=== PATIENT | male | born 1955 | race Caucasian/White ===

== ENCOUNTER 2022-11-26 17:52 | Inpatient (IN) | payer MEDICARE ==
[2022-11-26] MEDS ORDERED: Acetaminophen 325 MG TAB PO PRN (21:20)
[2022-11-26] MEDS ORDERED: Zolpidem Tartrate 5 MG TAB PO PRN (21:20)
[2022-11-26] MEDS ORDERED: Guaifenesin DM 100-10/5 ML UDCUP PO PRN (21:20)
[2022-11-26] MEDS ORDERED: guaiFENesin/DM ER PO PRN (21:24)
[2022-11-26] MEDS ORDERED: Vancomycin HCl 750 MG VIAL IVPB SCH (22:00)
[2022-11-26] MEDS ORDERED: Meropenem 1 GM VIAL IVPB SCH (22:00)
[2022-11-26] MEDS ORDERED: Vancomycin HCl 750 MG in Sodium Chloride 0.9% 250 ML 250 ML IVPB SCH (22:00)
[2022-11-27] MEDS: Meropenem 1 GM in Sodium Chloride 0.9% 100 ML IVPB SCH ×8 (00:17→22:38)
[2022-11-27] MEDS ORDERED: Meropenem 1 GM in Sodium Chloride 0.9% 100 ML IVPB SCH (02:00)
[2022-11-27] MEDS: Ondansetron ODT 4 MG TAB PO PRN (06:44)
[2022-11-27] MEDS: Famotidine 20 MG TAB PO SCH ×2 (08:36→20:48)
[2022-11-27] MEDS: Ferrous Sulfate 325 MG TAB PO SCH (08:36)
[2022-11-27] MEDS: metFORMIN XR 500 MG TAB PO SCH ×2 (08:36→20:51)
[2022-11-27] MEDS: Multivitamin W/ Minerals 1 TAB PO SCH (08:37)
[2022-11-27] MEDS: busPIRone HCl 5 MG TAB PO SCH ×2 (08:37→20:49)
[2022-11-27] MEDS: DULoxetine 30 MG CAP PO SCH (08:37)
[2022-11-27] MEDS: Escitalopram Oxalate 10 mg Tablet PO SCH (08:37)
[2022-11-27 09:17] LABS: Vancomycin, Trough 23.1 ug/mL
[2022-11-27] MEDS ORDERED: Morphine 2 MG/ML VIAL SLOW IVP SCH (09:45)
[2022-11-27] MEDS ORDERED: hydrALAZINE 25 MG TAB PO SCH (12:45)
[2022-11-27] MEDS: Morphine 4 MG/ML VIAL SLOW IVP SCH (13:34)
[2022-11-27] MEDS: traZODone HCl 50 MG TAB PO SCH (20:46)
[2022-11-27] MEDS: Simvastatin 40 MG TAB PO SCH (20:48)
[2022-11-27] MEDS: Losartan Potassium 50 MG TAB PO SCH (20:51)
[2022-11-27] MEDS: Aspirin 325 mg Enteric Coated Tablet PO SCH (20:52)
[2022-11-27] MEDS: Vancomycin HCl 1 GM in Sodium Chloride 0.9% 250 ML 250 ML IVPB SCH (22:42)
[2022-11-27] MEDS: Ipratropium/Albuterol 3 ML NEB NEB PRN (22:54)
[2022-11-28] MEDS: Meropenem 1 GM in Sodium Chloride 0.9% 100 ML IVPB SCH ×6 (05:04→22:49)
[2022-11-28 05:15] LABS: Eosinophils 2 % (0-10); Hemoglobin 8.3 g/dL (14.0-18.0); Lymphocytes 13 % (21-51); MDiff Complete? YES; Mean Corpuscular HGB CONC 32.4 g/dL (32.0-36.0); Mean Corpuscular Hemoglobin 28.1 pg (27.0-31.0); Mean Corpuscular Volume 86.9 fl (78.0-98.0); Mean Platelet Volume 6.2 fL (7.4-10.4); Monocytes 10 % (0-10); Neutrophil 75 % (42-75); Platelet Count 212 10x3/uL (130-400); RBC Distribution Width 15.9 % (11.5-14.5); Red Blood Cell (RBC) Count 2.96 mill/uL (4.70-6.10); White Blood Cell (WBC) Count 5.2 10x3/uL (4.8-10.8)
[2022-11-28 05:31] LABS: ALT (SGPT) 13 U/L (8-55); AST (SGOT) 15 U/L (5-34); Albumin 2.9 g/dL (3.4-4.8); Alkaline Phosphatase 55 U/L (40-110); Anion Gap 12 mmol/L (10-20); BUN (Urea Nitrogen) 15 mg/dL (8.4-25.7); Bilirubin, Total 0.2 mg/dL (0.2-1.2); CRP (Inflammatory) 7.23 mg/dL (= or < 0.5); Calc. Creatinine Clearance 77 mL/min (70-130); Calcium 9.7 mg/dL (7.8-10.44); Carbon Dioxide 27 mmol/L (23-31); Chloride 103 mmol/L (98-107); Estimated GFR 69; Globulin 3.7 g/dL (2.4-3.5); Glucose 131 mg/dL (80-115); Potassium 3.7 mmol/L (3.5-5.1); Protein, Total 6.6 g/dL (5.8-8.1); Sodium 138 mmol/L (136-145)
[2022-11-28] MEDS: Ferrous Sulfate 325 MG TAB PO SCH (08:02)
[2022-11-28] MEDS: hydrALAZINE 25 MG TAB PO SCH ×2 (08:02→12:08)
[2022-11-28] MEDS: Multivitamin W/ Minerals 1 TAB PO SCH (08:02)
[2022-11-28] MEDS: metFORMIN XR 500 MG TAB PO SCH ×2 (08:02→20:59)
[2022-11-28] MEDS: Escitalopram Oxalate 10 mg Tablet PO SCH (08:02)
[2022-11-28] MEDS: DULoxetine 30 MG CAP PO SCH (08:02)
[2022-11-28] MEDS: busPIRone HCl 5 MG TAB PO SCH ×2 (08:02→20:57)
[2022-11-28] MEDS: Famotidine 20 MG TAB PO SCH ×2 (08:02→20:58)
[2022-11-28] MEDS: Ipratropium/Albuterol 3 ML NEB NEB PRN (19:40)
[2022-11-28] MEDS: traZODone HCl 50 MG TAB PO SCH (20:58)
[2022-11-28] MEDS: Aspirin 325 mg Enteric Coated Tablet PO SCH (20:59)
[2022-11-28] MEDS: Simvastatin 40 MG TAB PO SCH (20:59)
[2022-11-28] MEDS: Losartan Potassium 50 MG TAB PO SCH (20:59)
[2022-11-28] MEDS: Vancomycin HCl 1 GM in Sodium Chloride 0.9% 250 ML 250 ML IVPB SCH (22:03)
[2022-11-29] MEDS: Meropenem 1 GM in Sodium Chloride 0.9% 100 ML IVPB SCH ×6 (05:01→23:02)
[2022-11-29] MEDS: hydrALAZINE 25 MG TAB PO SCH ×2 (08:47→12:15)
[2022-11-29] MEDS: Multivitamin W/ Minerals 1 TAB PO SCH (08:47)
[2022-11-29] MEDS: metFORMIN XR 500 MG TAB PO SCH ×2 (08:47→21:05)
[2022-11-29] MEDS: Escitalopram Oxalate 10 mg Tablet PO SCH (08:47)
[2022-11-29] MEDS: busPIRone HCl 5 MG TAB PO SCH ×2 (08:48→21:03)
[2022-11-29] MEDS: DULoxetine 30 MG CAP PO SCH (08:48)
[2022-11-29] MEDS: Famotidine 20 MG TAB PO SCH ×2 (08:48→21:05)
[2022-11-29] MEDS: Ferrous Sulfate 325 MG TAB PO SCH (08:48)
[2022-11-29] MEDS: Morphine 4 MG/ML VIAL SLOW IVP SCH (09:54)
[2022-11-29] MEDS ORDERED: Pseudoephedrine HCl 30 MG TAB PO PRN (15:16)
[2022-11-29] MEDS: Ondansetron ODT 4 MG TAB PO PRN ×2 (16:41→21:26)
[2022-11-29] MEDS: guaiFENesin/Codeine Phosphate 100 mg/10 mg 5 ml UD Cup PO PRN (19:27)
[2022-11-29] MEDS: Losartan Potassium 50 MG TAB PO SCH (21:03)
[2022-11-29] MEDS: Aspirin 325 mg Enteric Coated Tablet PO SCH (21:04)
[2022-11-29] MEDS: Simvastatin 40 MG TAB PO SCH (21:05)
[2022-11-29] MEDS: traZODone HCl 50 MG TAB PO SCH (21:06)
[2022-11-29 21:35] LABS: Vancomycin, Trough 13.2 ug/mL
[2022-11-29] MEDS: Vancomycin HCl 1 GM in Sodium Chloride 0.9% 250 ML 250 ML IVPB SCH (22:09)
[2022-11-30] MEDS: Meropenem 1 GM in Sodium Chloride 0.9% 100 ML IVPB SCH ×6 (05:05→23:15)
[2022-11-30] MEDS: hydrALAZINE 25 MG TAB PO SCH ×2 (08:50→11:41)
[2022-11-30] MEDS: Famotidine 20 MG TAB PO SCH ×2 (08:50→21:09)
[2022-11-30] MEDS: busPIRone HCl 5 MG TAB PO SCH ×2 (08:51→21:07)
[2022-11-30] MEDS: Ferrous Sulfate 325 MG TAB PO SCH (08:51)
[2022-11-30] MEDS: DULoxetine 30 MG CAP PO SCH (08:51)
[2022-11-30] MEDS: Multivitamin W/ Minerals 1 TAB PO SCH (08:51)
[2022-11-30] MEDS: Escitalopram Oxalate 10 mg Tablet PO SCH (08:51)
[2022-11-30] MEDS: metFORMIN XR 500 MG TAB PO SCH ×2 (08:52→21:09)
[2022-11-30] MEDS: guaiFENesin/Codeine Phosphate 100 mg/10 mg 5 ml UD Cup PO PRN (21:06)
[2022-11-30] MEDS: Aspirin 325 mg Enteric Coated Tablet PO SCH (21:08)
[2022-11-30] MEDS: Losartan Potassium 50 MG TAB PO SCH (21:08)
[2022-11-30] MEDS: Simvastatin 40 MG TAB PO SCH (21:08)
[2022-11-30] MEDS: traZODone HCl 50 MG TAB PO SCH (21:09)
[2022-11-30] MEDS: Vancomycin HCl 1 GM in Sodium Chloride 0.9% 250 ML 250 ML IVPB SCH (21:11)
[2022-12-01] MEDS: Meropenem 1 GM in Sodium Chloride 0.9% 100 ML IVPB SCH ×6 (05:42→22:41)
[2022-12-01] MEDS: Multivitamin W/ Minerals 1 TAB PO SCH (09:02)
[2022-12-01] MEDS: hydrALAZINE 25 MG TAB PO SCH ×2 (09:03→12:27)
[2022-12-01] MEDS: busPIRone HCl 5 MG TAB PO SCH ×2 (09:03→20:08)
[2022-12-01] MEDS: Famotidine 20 MG TAB PO SCH ×2 (09:03→20:09)
[2022-12-01] MEDS: metFORMIN XR 500 MG TAB PO SCH ×2 (09:03→20:10)
[2022-12-01] MEDS: Escitalopram Oxalate 10 mg Tablet PO SCH (09:03)
[2022-12-01] MEDS: DULoxetine 30 MG CAP PO SCH (09:03)
[2022-12-01] MEDS: Ferrous Sulfate 325 MG TAB PO SCH (09:03)
[2022-12-01] MEDS: Morphine 4 MG/ML VIAL SLOW IVP SCH (12:59)
[2022-12-01] MEDS: traZODone HCl 50 MG TAB PO SCH (20:09)
[2022-12-01] MEDS: Aspirin 325 mg Enteric Coated Tablet PO SCH (20:10)
[2022-12-01] MEDS: guaiFENesin/Codeine Phosphate 100 mg/10 mg 5 ml UD Cup PO PRN (20:10)
[2022-12-01] MEDS: Simvastatin 40 MG TAB PO SCH (20:11)
[2022-12-01] MEDS: Losartan Potassium 50 MG TAB PO SCH (20:11)
[2022-12-01 21:35] LABS: Vancomycin, Trough 12.3 ug/mL
[2022-12-01] MEDS: Vancomycin HCl 1 GM in Sodium Chloride 0.9% 250 ML 250 ML IVPB SCH (22:40)
[2022-12-02] MEDS: Meropenem 1 GM in Sodium Chloride 0.9% 100 ML IVPB SCH ×6 (05:52→23:32)
[2022-12-02] MEDS: Famotidine 20 MG TAB PO SCH ×2 (08:09→21:05)
[2022-12-02] MEDS: Multivitamin W/ Minerals 1 TAB PO SCH (08:09)
[2022-12-02] MEDS: Ferrous Sulfate 325 MG TAB PO SCH (08:09)
[2022-12-02] MEDS: busPIRone HCl 5 MG TAB PO SCH ×2 (08:10→21:05)
[2022-12-02] MEDS: DULoxetine 30 MG CAP PO SCH (08:10)
[2022-12-02] MEDS: Escitalopram Oxalate 10 mg Tablet PO SCH (08:10)
[2022-12-02] MEDS: hydrALAZINE 25 MG TAB PO SCH ×2 (08:10→13:23)
[2022-12-02] MEDS: metFORMIN XR 500 MG TAB PO SCH ×2 (08:13→21:09)
[2022-12-02] MEDS: Ondansetron ODT 4 MG TAB PO PRN (15:08)
[2022-12-02] MEDS: Vancomycin HCl 1 GM in Sodium Chloride 0.9% 250 ML 250 ML IVPB SCH (21:05)
[2022-12-02] MEDS: traZODone HCl 50 MG TAB PO SCH (21:05)
[2022-12-02] MEDS: Simvastatin 40 MG TAB PO SCH (21:05)
[2022-12-02] MEDS: Aspirin 325 mg Enteric Coated Tablet PO SCH (21:08)
[2022-12-02] MEDS: Losartan Potassium 50 MG TAB PO SCH (21:09)
[2022-12-03] MEDS: Meropenem 1 GM in Sodium Chloride 0.9% 100 ML IVPB SCH ×6 (05:54→23:03)
[2022-12-03] MEDS: hydrALAZINE 25 MG TAB PO SCH ×2 (08:49→14:03)
[2022-12-03] MEDS: Ferrous Sulfate 325 MG TAB PO SCH (08:49)
[2022-12-03] MEDS: Escitalopram Oxalate 10 mg Tablet PO SCH (08:49)
[2022-12-03] MEDS: Multivitamin W/ Minerals 1 TAB PO SCH (08:49)
[2022-12-03] MEDS: DULoxetine 30 MG CAP PO SCH (08:49)
[2022-12-03] MEDS: busPIRone HCl 5 MG TAB PO SCH ×2 (08:49→21:29)
[2022-12-03] MEDS: metFORMIN XR 500 MG TAB PO SCH ×2 (08:51→21:30)
[2022-12-03] MEDS: Famotidine 20 MG TAB PO SCH ×2 (08:59→21:29)
[2022-12-03] MEDS: Morphine 4 MG/ML VIAL SLOW IVP SCH (11:05)
[2022-12-03] MEDS: guaiFENesin/Codeine Phosphate 100 mg/10 mg 5 ml UD Cup PO PRN ×2 (14:02→21:31)
[2022-12-03] MEDS: Aspirin 325 mg Enteric Coated Tablet PO SCH (21:28)
[2022-12-03] MEDS: Losartan Potassium 50 MG TAB PO SCH (21:29)
[2022-12-03] MEDS: traZODone HCl 50 MG TAB PO SCH (21:30)
[2022-12-03] MEDS: Simvastatin 40 MG TAB PO SCH (21:30)
[2022-12-03] MEDS: HYDROcodone/Acetaminophen 5/325 mg Tablet PO PRN (21:30)
[2022-12-03 21:41] LABS: Vancomycin, Trough 12.3 ug/mL
[2022-12-03] MEDS: Vancomycin HCl 1 GM in Sodium Chloride 0.9% 250 ML 250 ML IVPB SCH (21:53)
[2022-12-03] MEDS: Ondansetron ODT 4 MG TAB PO PRN (22:07)
[2022-12-04] MEDS: Meropenem 1 GM in Sodium Chloride 0.9% 100 ML IVPB SCH ×6 (05:31→22:44)
[2022-12-04] MEDS: Multivitamin W/ Minerals 1 TAB PO SCH (08:05)
[2022-12-04] MEDS: Famotidine 20 MG TAB PO SCH ×2 (08:06→20:24)
[2022-12-04] MEDS: busPIRone HCl 5 MG TAB PO SCH ×2 (08:06→20:23)
[2022-12-04] MEDS: Escitalopram Oxalate 10 mg Tablet PO SCH (08:06)
[2022-12-04] MEDS: DULoxetine 30 MG CAP PO SCH (08:06)
[2022-12-04] MEDS: Ferrous Sulfate 325 MG TAB PO SCH (08:06)
[2022-12-04] MEDS: metFORMIN XR 500 MG TAB PO SCH ×2 (08:07→20:32)
[2022-12-04] MEDS: hydrALAZINE 25 MG TAB PO SCH ×2 (08:08→11:49)
[2022-12-04] MEDS: guaiFENesin/Codeine Phosphate 100 mg/10 mg 5 ml UD Cup PO PRN ×2 (11:49→20:30)
[2022-12-04] MEDS: Losartan Potassium 50 MG TAB PO SCH (20:23)
[2022-12-04] MEDS: traZODone HCl 50 MG TAB PO SCH (20:23)
[2022-12-04] MEDS: Aspirin 325 mg Enteric Coated Tablet PO SCH (20:24)
[2022-12-04] MEDS: Simvastatin 40 MG TAB PO SCH (20:24)
[2022-12-04] MEDS: Vancomycin HCl 1 GM in Sodium Chloride 0.9% 250 ML 250 ML IVPB SCH (21:59)
[2022-12-05] MEDS: Meropenem 1 GM in Sodium Chloride 0.9% 100 ML IVPB SCH ×6 (05:19→22:47)
[2022-12-05] MEDS: Escitalopram Oxalate 10 mg Tablet PO SCH (08:37)
[2022-12-05] MEDS: Multivitamin W/ Minerals 1 TAB PO SCH (08:37)
[2022-12-05] MEDS: Famotidine 20 MG TAB PO SCH ×2 (08:37→20:17)
[2022-12-05] MEDS: metFORMIN XR 500 MG TAB PO SCH ×2 (08:38→20:21)
[2022-12-05] MEDS: busPIRone HCl 5 MG TAB PO SCH ×2 (08:38→20:20)
[2022-12-05] MEDS: hydrALAZINE 25 MG TAB PO SCH ×2 (08:38→11:26)
[2022-12-05] MEDS: DULoxetine 30 MG CAP PO SCH (08:38)
[2022-12-05] MEDS: Ferrous Sulfate 325 MG TAB PO SCH (08:45)
[2022-12-05] MEDS: guaiFENesin/Codeine Phosphate 100 mg/10 mg 5 ml UD Cup PO PRN ×2 (15:29→22:01)
[2022-12-05] MEDS: Simvastatin 40 MG TAB PO SCH (20:16)
[2022-12-05] MEDS: Losartan Potassium 50 MG TAB PO SCH (20:18)
[2022-12-05] MEDS: Aspirin 325 mg Enteric Coated Tablet PO SCH (20:18)
[2022-12-05] MEDS: traZODone HCl 50 MG TAB PO SCH (20:19)
[2022-12-05] MEDS: HYDROcodone/Acetaminophen 5/325 mg Tablet PO PRN (20:19)
[2022-12-05] MEDS ORDERED: guaiFENesin/Codeine Phosphate 100 mg/10 mg 5 ml UD Cup ONE ×2 (21:30→21:59)
[2022-12-05] MEDS: Ipratropium/Albuterol 3 ML NEB NEB PRN (22:05)
[2022-12-05] MEDS: Vancomycin HCl 1 GM in Sodium Chloride 0.9% 250 ML 250 ML IVPB SCH (22:08)
[2022-12-06] MEDS: Ipratropium/Albuterol 3 ML NEB NEB PRN (03:38)
[2022-12-06] MEDS ORDERED: guaiFENesin/Codeine Phosphate 100 mg/10 mg 5 ml UD Cup ONE ×3 (03:47→13:37)
[2022-12-06] MEDS: guaiFENesin/Codeine Phosphate 100 mg/10 mg 5 ml UD Cup PO PRN ×2 (03:51→13:47)
[2022-12-06 05:22] LABS: Band 1 % (5-11); Eosinophils 5 % (0-10); Lymphocytes 17 % (21-51); MDiff Complete? YES; Mean Corpuscular HGB CONC 32.5 g/dL (32.0-36.0); Mean Corpuscular Hemoglobin 27.9 pg (27.0-31.0); Mean Corpuscular Volume 85.6 fl (78.0-98.0); Mean Platelet Volume 6.3 fL (7.4-10.4); Monocytes 8 % (0-10); Neutrophil 69 % (42-75); Platelet Count 220 10x3/uL (130-400); RBC Distribution Width 15.4 % (11.5-14.5); Red Blood Cell (RBC) Count 2.89 mill/uL (4.70-6.10); White Blood Cell (WBC) Count 4.2 10x3/uL (4.8-10.8)
[2022-12-06] MEDS: Meropenem 1 GM in Sodium Chloride 0.9% 100 ML IVPB SCH ×6 (05:25→23:58)
[2022-12-06 05:37] LABS: Anion Gap 12 mmol/L (10-20); BUN (Urea Nitrogen) 13 mg/dL (8.4-25.7); CRP (Inflammatory) 3.41 mg/dL (= or < 0.5); Calc. Creatinine Clearance 82 mL/min (70-130); Calcium 9.6 mg/dL (7.8-10.44); Carbon Dioxide 27 mmol/L (23-31); Chloride 100 mmol/L (98-107); Estimated GFR 75; Glucose 133 mg/dL (80-115); Potassium 3.2 mmol/L (3.5-5.1); Sodium 136 mmol/L (136-145)
[2022-12-06] MEDS: Multivitamin W/ Minerals 1 TAB PO SCH (08:43)
[2022-12-06] MEDS: Ferrous Sulfate 325 MG TAB PO SCH (08:43)
[2022-12-06] MEDS: metFORMIN XR 500 MG TAB PO SCH ×2 (08:43→20:56)
[2022-12-06] MEDS: hydrALAZINE 25 MG TAB PO SCH ×2 (08:43→13:30)
[2022-12-06] MEDS: Escitalopram Oxalate 10 mg Tablet PO SCH (08:43)
[2022-12-06] MEDS: busPIRone HCl 5 MG TAB PO SCH ×2 (08:44→20:55)
[2022-12-06] MEDS: DULoxetine 30 MG CAP PO SCH (08:44)
[2022-12-06] MEDS: Famotidine 20 MG TAB PO SCH ×2 (08:44→20:56)
[2022-12-06] MEDS: Morphine 4 MG/ML VIAL SLOW IVP SCH (10:58)
[2022-12-06] MEDS: Losartan Potassium 50 MG TAB PO SCH (20:54)
[2022-12-06] MEDS: Aspirin 325 mg Enteric Coated Tablet PO SCH (20:55)
[2022-12-06] MEDS: Simvastatin 40 MG TAB PO SCH (20:55)
[2022-12-06] MEDS: traZODone HCl 50 MG TAB PO SCH (20:56)
[2022-12-06] MEDS: Ondansetron ODT 4 MG TAB PO PRN (21:11)
[2022-12-06 21:39] LABS: Vancomycin, Trough 13.5 ug/mL
[2022-12-06] MEDS: Vancomycin HCl 1 GM in Sodium Chloride 0.9% 250 ML 250 ML IVPB SCH (22:22)
[2022-12-07] MEDS: Meropenem 1 GM in Sodium Chloride 0.9% 100 ML IVPB SCH ×6 (05:28→22:43)
[2022-12-07] MEDS: metFORMIN XR 500 MG TAB PO SCH ×2 (08:29→20:39)
[2022-12-07] MEDS: busPIRone HCl 5 MG TAB PO SCH ×2 (08:30→20:40)
[2022-12-07] MEDS: Escitalopram Oxalate 10 mg Tablet PO SCH (08:30)
[2022-12-07] MEDS: Famotidine 20 MG TAB PO SCH ×2 (08:30→20:40)
[2022-12-07] MEDS: hydrALAZINE 25 MG TAB PO SCH ×2 (08:30→12:30)
[2022-12-07] MEDS: DULoxetine 30 MG CAP PO SCH (08:31)
[2022-12-07] MEDS: Ferrous Sulfate 325 MG TAB PO SCH (08:31)
[2022-12-07] MEDS: Multivitamin W/ Minerals 1 TAB PO SCH (08:31)
[2022-12-07] MEDS ORDERED: Potassium Chloride 20 MEQ TAB PO SCH (12:00)
[2022-12-07] MEDS: guaiFENesin/Codeine Phosphate 100 mg/10 mg 5 ml UD Cup PO PRN ×2 (14:38→21:30)
[2022-12-07] MEDS: Simvastatin 40 MG TAB PO SCH (20:38)
[2022-12-07] MEDS: Losartan Potassium 50 MG TAB PO SCH (20:39)
[2022-12-07] MEDS: Aspirin 325 mg Enteric Coated Tablet PO SCH (20:39)
[2022-12-07] MEDS: traZODone HCl 50 MG TAB PO SCH (20:40)
[2022-12-07] MEDS: Vancomycin HCl 1 GM in Sodium Chloride 0.9% 250 ML 250 ML IVPB SCH (21:26)
[2022-12-08] MEDS: Meropenem 1 GM in Sodium Chloride 0.9% 100 ML IVPB SCH ×6 (05:55→23:33)
[2022-12-08] MEDS: Ferrous Sulfate 325 MG TAB PO SCH (08:08)
[2022-12-08] MEDS: busPIRone HCl 5 MG TAB PO SCH ×2 (08:09→21:43)
[2022-12-08] MEDS: Multivitamin W/ Minerals 1 TAB PO SCH (08:09)
[2022-12-08] MEDS: Potassium Chloride 20 MEQ TAB PO SCH (08:09)
[2022-12-08] MEDS: DULoxetine 30 MG CAP PO SCH (08:09)
[2022-12-08] MEDS: metFORMIN XR 500 MG TAB PO SCH ×2 (08:09→21:47)
[2022-12-08] MEDS: Escitalopram Oxalate 10 mg Tablet PO SCH (08:10)
[2022-12-08] MEDS: hydrALAZINE 25 MG TAB PO SCH ×2 (08:10→11:41)
[2022-12-08] MEDS: Famotidine 20 MG TAB PO SCH ×2 (08:10→21:44)
[2022-12-08 10:00] VITALS: BMI 24.8
[2022-12-08] MEDS: guaiFENesin/Codeine Phosphate 100 mg/10 mg 5 ml UD Cup PO PRN (15:52)
[2022-12-08] MEDS: Ondansetron ODT 4 MG TAB PO PRN (21:43)
[2022-12-08] MEDS: traZODone HCl 50 MG TAB PO SCH (21:43)
[2022-12-08] MEDS: Simvastatin 40 MG TAB PO SCH (21:44)
[2022-12-08] MEDS: Aspirin 325 mg Enteric Coated Tablet PO SCH (21:44)
[2022-12-08] MEDS: Losartan Potassium 50 MG TAB PO SCH (21:44)
[2022-12-08] MEDS: Vancomycin HCl 1 GM in Sodium Chloride 0.9% 250 ML 250 ML IVPB SCH (21:56)
[2022-12-09] MEDS: Meropenem 1 GM in Sodium Chloride 0.9% 100 ML IVPB SCH ×6 (05:56→23:51)
[2022-12-09] MEDS: Escitalopram Oxalate 10 mg Tablet PO SCH (08:29)
[2022-12-09] MEDS: DULoxetine 30 MG CAP PO SCH (08:29)
[2022-12-09] MEDS: Ferrous Sulfate 325 MG TAB PO SCH (08:29)
[2022-12-09] MEDS: metFORMIN XR 500 MG TAB PO SCH ×2 (08:29→21:47)
[2022-12-09] MEDS: Multivitamin W/ Minerals 1 TAB PO SCH (08:29)
[2022-12-09] MEDS: busPIRone HCl 5 MG TAB PO SCH ×2 (08:29→21:48)
[2022-12-09] MEDS: hydrALAZINE 25 MG TAB PO SCH ×2 (08:29→11:37)
[2022-12-09] MEDS: Famotidine 20 MG TAB PO SCH ×2 (08:30→21:48)
[2022-12-09] MEDS: Potassium Chloride 20 MEQ TAB PO SCH (08:30)
[2022-12-09 21:46] LABS: Vancomycin, Trough 13.6 ug/mL
[2022-12-09] MEDS: traZODone HCl 50 MG TAB PO SCH (21:47)
[2022-12-09] MEDS: Simvastatin 40 MG TAB PO SCH (21:48)
[2022-12-09] MEDS: Losartan Potassium 50 MG TAB PO SCH (21:48)
[2022-12-09] MEDS: Aspirin 325 mg Enteric Coated Tablet PO SCH (21:49)
[2022-12-09] MEDS: Ondansetron ODT 4 MG TAB PO PRN (21:54)
[2022-12-09] MEDS: Vancomycin HCl 1 GM in Sodium Chloride 0.9% 250 ML 250 ML IVPB SCH (22:09)
[2022-12-10 05:16] LABS: Eosinophils 9 % (0-10); Hemoglobin 8.8 g/dL (14.0-18.0); Lymphocytes 18 % (21-51); MDiff Complete? YES; Mean Corpuscular HGB CONC 32.3 g/dL (32.0-36.0); Mean Corpuscular Hemoglobin 27.7 pg (27.0-31.0); Mean Corpuscular Volume 85.6 fl (78.0-98.0); Mean Platelet Volume 6.1 fL (7.4-10.4); Monocytes 13 % (0-10); Neutrophil 60 % (42-75); Platelet Count 257 10x3/uL (130-400); RBC Distribution Width 15.4 % (11.5-14.5)
[2022-12-10 05:18] LABS: Anion Gap 14 mmol/L (10-20); BUN (Urea Nitrogen) 15 mg/dL (8.4-25.7); CRP (Inflammatory) 2.33 mg/dL (= or < 0.5); Calc. Creatinine Clearance 79 mL/min (70-130); Calcium 10.2 mg/dL (7.8-10.44); Carbon Dioxide 25 mmol/L (23-31); Chloride 101 mmol/L (98-107); Estimated GFR 73; Glucose 111 mg/dL (80-115); Potassium 4.1 mmol/L (3.5-5.1); Sodium 136 mmol/L (136-145)
[2022-12-10] MEDS: Meropenem 1 GM in Sodium Chloride 0.9% 100 ML IVPB SCH ×6 (05:39→22:39)
[2022-12-10] MEDS: Potassium Chloride 20 MEQ TAB PO SCH (08:15)
[2022-12-10] MEDS: busPIRone HCl 5 MG TAB PO SCH ×2 (08:15→20:17)
[2022-12-10] MEDS: Ferrous Sulfate 325 MG TAB PO SCH (08:15)
[2022-12-10] MEDS: Multivitamin W/ Minerals 1 TAB PO SCH (08:16)
[2022-12-10] MEDS: DULoxetine 30 MG CAP PO SCH (08:16)
[2022-12-10] MEDS: hydrALAZINE 25 MG TAB PO SCH ×2 (08:16→11:59)
[2022-12-10] MEDS: metFORMIN XR 500 MG TAB PO SCH ×2 (08:16→20:17)
[2022-12-10] MEDS: Escitalopram Oxalate 10 mg Tablet PO SCH (08:16)
[2022-12-10] MEDS: Famotidine 20 MG TAB PO SCH ×2 (08:19→20:17)
[2022-12-10] MEDS: guaiFENesin/Codeine Phosphate 100 mg/10 mg 5 ml UD Cup PO PRN (14:20)
[2022-12-10] MEDS: traZODone HCl 50 MG TAB PO SCH (20:17)
[2022-12-10] MEDS: Aspirin 325 mg Enteric Coated Tablet PO SCH (20:17)
[2022-12-10] MEDS: Losartan Potassium 50 MG TAB PO SCH (20:17)
[2022-12-10] MEDS: Simvastatin 40 MG TAB PO SCH (20:17)
[2022-12-10] MEDS: Vancomycin HCl 1 GM in Sodium Chloride 0.9% 250 ML 250 ML IVPB SCH (21:09)
[2022-12-11 07:28] VITALS: TEMP 98.6
[2022-12-11] MEDS: Ferrous Sulfate 325 MG TAB PO SCH (08:34)
[2022-12-11] MEDS: busPIRone HCl 5 MG TAB PO SCH (08:34)
[2022-12-11] MEDS: Potassium Chloride 20 MEQ TAB PO SCH (08:35)
[2022-12-11] MEDS: Escitalopram Oxalate 10 mg Tablet PO SCH (08:35)
[2022-12-11] MEDS: DULoxetine 30 MG CAP PO SCH (08:35)
[2022-12-11] MEDS: Multivitamin W/ Minerals 1 TAB PO SCH (08:35)
[2022-12-11] MEDS: hydrALAZINE 25 MG TAB PO SCH (08:36)
[2022-12-11] MEDS: metFORMIN XR 500 MG TAB PO SCH (08:36)
[2022-12-11 08:40] VITALS: BP 132/73
[2022-12-11] MEDS: Famotidine 20 MG TAB PO SCH (08:43)
== END 2022-12-11 11:24 | disposition home or self-care (01) | DRG 862 ==
LOC: MADMS 18:23
PROVIDERS: ADMIT Emergency Medicine; ATTEND Family Medicine
DX: T81.43XA Infection following a procedure, organ and space surgical site, initial encounter (principal); K65.1 Peritoneal abscess; R78.81 Bacteremia; E11.9 Type 2 diabetes mellitus without complications; E78.5 Hyperlipidemia, unspecified; Z66 Do not resuscitate; D64.9 Anemia, unspecified; R53.81 Other malaise; I10 Essential (primary) hypertension; Z88.8 Allergy status to other drugs, medicaments and biological substances; Z79.82 Long term (current) use of aspirin; Z79.84 Long term (current) use of oral hypoglycemic drugs; Z79.899 Other long term (current) drug therapy; E87.6 Hypokalemia
CPT/HCPCS: 36415; 36416; 80048; 80053; 80202; 82565; 84520; 85025; 86140; J1650; J2185; J2270; J3370; J3490; J7050; J7620; Q0162

== ENCOUNTER 2023-04-25 19:31 | Inpatient (IN) | payer MEDICARE ==
[2023-04-25] MEDS ORDERED: Naproxen 500 MG TAB PO PRN (20:53)
[2023-04-25] MEDS ORDERED: Ipratropium/Albuterol 3 ML NEB NEB PRN (20:53)
[2023-04-25] MEDS ORDERED: hydrALAZINE 25 MG TAB PO SCH (21:00)
[2023-04-25] MEDS: Atorvastatin Calcium 40 MG TAB PO SCH (21:28)
[2023-04-25] MEDS: Diphenoxylate HCl/Atropine Tablet PO SCH (21:28)
[2023-04-25] MEDS: traZODone HCl 50 MG TAB PO SCH (21:29)
[2023-04-25] MEDS: Losartan 50 MG TAB PO SCH (21:29)
[2023-04-25] MEDS: busPIRone HCl 5 MG TAB PO SCH (21:31)
[2023-04-25] MEDS: Meropenem 1 GM in Sodium Chloride 0.9% 100 ML IVPB SCH (21:33)
[2023-04-26] MEDS: metFORMIN XR 500 MG ER.TAB PO SCH (07:59)
[2023-04-26] MEDS: busPIRone HCl 5 MG TAB PO SCH ×2 (07:59→20:19)
[2023-04-26] MEDS: Diphenoxylate HCl/Atropine Tablet PO SCH ×3 (07:59→20:19)
[2023-04-26] MEDS: Ferrous Sulfate 325 MG TAB PO SCH (07:59)
[2023-04-26] MEDS: Aspirin 325 mg Enteric Coated Tablet PO SCH (08:10)
[2023-04-26] MEDS: DULoxetine 30 MG CAP PO SCH (08:10)
[2023-04-26] MEDS: Famotidine 20 MG TAB PO SCH (08:11)
[2023-04-26] MEDS: Escitalopram Oxalate 10 mg Tablet PO SCH (08:11)
[2023-04-26] MEDS: Hydrochlorothiazide 25 MG TAB PO SCH (08:13)
[2023-04-26] MEDS: Multivitamin W/ Minerals 1 TAB PO SCH (08:13)
[2023-04-26] MEDS ORDERED: hydrALAZINE 25 MG TAB PO SCH (09:00)
[2023-04-26] MEDS: Meropenem 1 GM in Sodium Chloride 0.9% 100 ML IVPB SCH ×2 (10:07→20:59)
[2023-04-26] MEDS: traZODone HCl 50 MG TAB PO SCH (20:19)
[2023-04-26] MEDS: Atorvastatin Calcium 40 MG TAB PO SCH (20:20)
[2023-04-26] MEDS: hydrALAZINE 25 MG TAB PO SCH (20:20)
[2023-04-26] MEDS: Losartan 50 MG TAB PO SCH (20:20)
[2023-04-27] MEDS: Diphenoxylate HCl/Atropine Tablet PO SCH ×3 (08:14→20:05)
[2023-04-27] MEDS: busPIRone HCl 5 MG TAB PO SCH ×2 (08:14→20:04)
[2023-04-27] MEDS: hydrALAZINE 25 MG TAB PO SCH ×2 (08:14→20:03)
[2023-04-27] MEDS: Multivitamin W/ Minerals 1 TAB PO SCH (08:15)
[2023-04-27] MEDS: Escitalopram Oxalate 10 mg Tablet PO SCH (08:15)
[2023-04-27] MEDS: Aspirin 325 mg Enteric Coated Tablet PO SCH (08:15)
[2023-04-27] MEDS: DULoxetine 30 MG CAP PO SCH (08:15)
[2023-04-27] MEDS: Famotidine 20 MG TAB PO SCH (08:15)
[2023-04-27] MEDS: Hydrochlorothiazide 25 MG TAB PO SCH (08:15)
[2023-04-27] MEDS: metFORMIN XR 500 MG ER.TAB PO SCH (08:16)
[2023-04-27] MEDS: Ferrous Sulfate 325 MG TAB PO SCH (08:16)
[2023-04-27] MEDS ORDERED: Lidocaine 5% Patch TD SCH ×2 (09:00→21:00)
[2023-04-27] MEDS: Meropenem 1 GM in Sodium Chloride 0.9% 100 ML IVPB SCH ×2 (10:10→21:23)
[2023-04-27] MEDS: HYDROcodone/Acetaminophen 7.5/325 mg Tablet PO PRN (10:33)
[2023-04-27] MEDS: Ondansetron ODT 4 MG TAB PO PRN ×2 (10:45→20:01)
[2023-04-27] MEDS: traZODone HCl 50 MG TAB PO SCH (20:04)
[2023-04-27] MEDS: Atorvastatin Calcium 40 MG TAB PO SCH (20:05)
[2023-04-27] MEDS: Losartan 50 MG TAB PO SCH (20:05)
[2023-04-27] MEDS ORDERED: Transdermal Patch Removal TOP SCH ×2 (21:00)
[2023-04-28] MEDS: Diphenoxylate HCl/Atropine Tablet PO SCH ×3 (08:33→20:05)
[2023-04-28] MEDS: DULoxetine 30 MG CAP PO SCH (08:35)
[2023-04-28] MEDS: Famotidine 20 MG TAB PO SCH (08:35)
[2023-04-28] MEDS: metFORMIN XR 500 MG ER.TAB PO SCH (08:40)
[2023-04-28] MEDS: Aspirin 325 mg Enteric Coated Tablet PO SCH (08:40)
[2023-04-28] MEDS: busPIRone HCl 5 MG TAB PO SCH ×2 (08:40→20:06)
[2023-04-28] MEDS: Ferrous Sulfate 325 MG TAB PO SCH (08:40)
[2023-04-28] MEDS: Escitalopram Oxalate 10 mg Tablet PO SCH (08:41)
[2023-04-28] MEDS: Hydrochlorothiazide 25 MG TAB PO SCH (08:43)
[2023-04-28] MEDS: hydrALAZINE 25 MG TAB PO SCH ×2 (08:43→20:07)
[2023-04-28] MEDS: Multivitamin W/ Minerals 1 TAB PO SCH (08:44)
[2023-04-28] MEDS: Meropenem 1 GM in Sodium Chloride 0.9% 100 ML IVPB SCH ×2 (09:37→22:04)
[2023-04-28] MEDS: traZODone HCl 50 MG TAB PO SCH (20:06)
[2023-04-28] MEDS: Losartan 50 MG TAB PO SCH (20:07)
[2023-04-28] MEDS: Atorvastatin Calcium 40 MG TAB PO SCH (20:07)
[2023-04-29] MEDS: busPIRone HCl 5 MG TAB PO SCH ×2 (08:08→20:55)
[2023-04-29] MEDS: Diphenoxylate HCl/Atropine Tablet PO SCH ×3 (08:09→20:54)
[2023-04-29] MEDS: hydrALAZINE 25 MG TAB PO SCH ×2 (08:09→20:57)
[2023-04-29] MEDS: metFORMIN XR 500 MG ER.TAB PO SCH (08:09)
[2023-04-29] MEDS: Aspirin 325 mg Enteric Coated Tablet PO SCH (08:09)
[2023-04-29] MEDS: DULoxetine 30 MG CAP PO SCH (08:09)
[2023-04-29] MEDS: Multivitamin W/ Minerals 1 TAB PO SCH (08:10)
[2023-04-29] MEDS: Ferrous Sulfate 325 MG TAB PO SCH (08:10)
[2023-04-29] MEDS: Escitalopram Oxalate 10 mg Tablet PO SCH (08:10)
[2023-04-29] MEDS: Famotidine 20 MG TAB PO SCH (08:10)
[2023-04-29] MEDS: Hydrochlorothiazide 25 MG TAB PO SCH (08:10)
[2023-04-29] MEDS ORDERED: Lidocaine 5% Patch TD PRN (08:35)
[2023-04-29] MEDS: Meropenem 1 GM in Sodium Chloride 0.9% 100 ML IVPB SCH ×2 (10:22→21:09)
[2023-04-29] MEDS: Atorvastatin Calcium 40 MG TAB PO SCH (20:54)
[2023-04-29] MEDS: Losartan 50 MG TAB PO SCH (20:57)
[2023-04-29] MEDS: traZODone HCl 50 MG TAB PO SCH (20:57)
[2023-04-29] MEDS ORDERED: Transdermal Patch Removal TOP PRN (21:00)
[2023-04-29] MEDS: HYDROcodone/Acetaminophen 7.5/325 mg Tablet PO PRN (21:06)
[2023-04-30] MEDS: busPIRone HCl 5 MG TAB PO SCH ×2 (08:40→20:01)
[2023-04-30] MEDS: DULoxetine 30 MG CAP PO SCH (08:40)
[2023-04-30] MEDS: Diphenoxylate HCl/Atropine Tablet PO SCH ×3 (08:40→20:03)
[2023-04-30] MEDS: Multivitamin W/ Minerals 1 TAB PO SCH (08:41)
[2023-04-30] MEDS: metFORMIN XR 500 MG ER.TAB PO SCH (08:41)
[2023-04-30] MEDS: Escitalopram Oxalate 10 mg Tablet PO SCH (08:41)
[2023-04-30] MEDS: hydrALAZINE 25 MG TAB PO SCH ×2 (08:41→20:01)
[2023-04-30] MEDS: Aspirin 325 mg Enteric Coated Tablet PO SCH (08:41)
[2023-04-30] MEDS: Famotidine 20 MG TAB PO SCH (08:42)
[2023-04-30] MEDS: Hydrochlorothiazide 25 MG TAB PO SCH (08:42)
[2023-04-30] MEDS: Ferrous Sulfate 325 MG TAB PO SCH (08:42)
[2023-04-30] MEDS: Meropenem 1 GM in Sodium Chloride 0.9% 100 ML IVPB SCH ×2 (10:27→21:22)
[2023-04-30] MEDS: HYDROcodone/Acetaminophen 7.5/325 mg Tablet PO PRN (19:59)
[2023-04-30] MEDS: traZODone HCl 50 MG TAB PO SCH (20:00)
[2023-04-30] MEDS: Losartan 50 MG TAB PO SCH (20:02)
[2023-04-30] MEDS: Atorvastatin Calcium 40 MG TAB PO SCH (20:03)
[2023-05-01] MEDS: Multivitamin W/ Minerals 1 TAB PO SCH (08:56)
[2023-05-01] MEDS: busPIRone HCl 5 MG TAB PO SCH ×2 (08:56→20:03)
[2023-05-01] MEDS: DULoxetine 30 MG CAP PO SCH (08:56)
[2023-05-01] MEDS: hydrALAZINE 25 MG TAB PO SCH ×2 (08:56→20:02)
[2023-05-01] MEDS: Diphenoxylate HCl/Atropine Tablet PO SCH ×3 (08:56→20:02)
[2023-05-01] MEDS: Aspirin 325 mg Enteric Coated Tablet PO SCH (08:57)
[2023-05-01] MEDS: Escitalopram Oxalate 10 mg Tablet PO SCH (08:57)
[2023-05-01] MEDS: Famotidine 20 MG TAB PO SCH (08:57)
[2023-05-01] MEDS: Hydrochlorothiazide 25 MG TAB PO SCH (08:57)
[2023-05-01] MEDS: metFORMIN XR 500 MG ER.TAB PO SCH (08:58)
[2023-05-01] MEDS: Ferrous Sulfate 325 MG TAB PO SCH (08:58)
[2023-05-01] MEDS: Meropenem 1 GM in Sodium Chloride 0.9% 100 ML IVPB SCH ×2 (10:24→21:12)
[2023-05-01] MEDS: Lidocaine 4% Patch TD PRN (11:58)
[2023-05-01] MEDS: Losartan 50 MG TAB PO SCH (20:03)
[2023-05-01] MEDS: traZODone HCl 50 MG TAB PO SCH (20:03)
[2023-05-01] MEDS: Atorvastatin Calcium 40 MG TAB PO SCH (20:03)
[2023-05-02 05:19] LABS: #Eosinphils 0.1 thou/uL (0.0-0.7); #Lymphocytes 0.7 thou/uL (1.20-3.40); #Monocytes 0.6 thou/uL (0.11-0.59); #Neutrophils 5.5 thou/uL (1.40-6.50); %Basophils 0.5 % (0.0-1.0); %Eosinophils 1.8 % (0.0-10.0); %Lymphocytes 10.1 % (21.0-51.0); %Monocytes 8.6 % (0.0-10.0); Hematocrit 26.2 % (42.0-52.0); Hemoglobin 9.1 g/dL (14.0-18.0); Mean Corpuscular HGB CONC 34.7 g/dL (32.0-36.0); Mean Corpuscular Hemoglobin 29.4 pg (27.0-31.0); Mean Corpuscular Volume 84.8 fl (78.0-98.0); Mean Platelet Volume 6.3 fL (7.4-10.4); Platelet Count 218 10x3/uL (130-400); RBC Distribution Width 14.2 % (11.5-14.5); Red Blood Cell (RBC) Count 3.09 mill/uL (4.70-6.10); White Blood Cell (WBC) Count 6.9 10x3/uL (4.8-10.8)
[2023-05-02 05:35] LABS: ALT (SGPT) 8 U/L (8-55); AST (SGOT) 11 U/L (5-34); Albumin 3.6 g/dL (3.4-4.8); Alkaline Phosphatase 58 U/L (40-110); Anion Gap 17 mmol/L (10-20); BUN (Urea Nitrogen) 28 mg/dL (8.4-25.7); Bilirubin, Total 0.4 mg/dL (0.2-1.2); Calc. Creatinine Clearance 65 mL/min (70-130); Calcium 10.7 mg/dL (7.8-10.44); Carbon Dioxide 21 mmol/L (23-31); Chloride 102 mmol/L (98-107); Estimated GFR 55; Globulin 3.9 g/dL (2.4-3.5); Glucose 117 mg/dL (80-115); Potassium 3.7 mmol/L (3.5-5.1); Protein, Total 7.5 g/dL (5.8-8.1); Sodium 136 mmol/L (136-145)
[2023-05-02] MEDS: Diphenoxylate HCl/Atropine Tablet PO SCH ×3 (08:13→19:59)
[2023-05-02] MEDS: Aspirin 325 mg Enteric Coated Tablet PO SCH (08:14)
[2023-05-02] MEDS: busPIRone HCl 5 MG TAB PO SCH ×2 (08:14→20:06)
[2023-05-02] MEDS: Escitalopram Oxalate 10 mg Tablet PO SCH (08:14)
[2023-05-02] MEDS: Famotidine 20 MG TAB PO SCH (08:15)
[2023-05-02] MEDS: Ferrous Sulfate 325 MG TAB PO SCH (08:15)
[2023-05-02] MEDS: DULoxetine 30 MG CAP PO SCH (08:15)
[2023-05-02] MEDS: metFORMIN XR 500 MG ER.TAB PO SCH (08:15)
[2023-05-02] MEDS: hydrALAZINE 25 MG TAB PO SCH ×2 (08:17→19:59)
[2023-05-02] MEDS: Multivitamin W/ Minerals 1 TAB PO SCH (08:18)
[2023-05-02] MEDS: Hydrochlorothiazide 25 MG TAB PO SCH (08:18)
[2023-05-02] MEDS: Meropenem 1 GM in Sodium Chloride 0.9% 100 ML IVPB SCH ×2 (09:32→21:20)
[2023-05-02] MEDS: Lidocaine 4% Patch TD PRN (11:35)
[2023-05-02] MEDS: HYDROcodone/Acetaminophen 7.5/325 mg Tablet PO PRN ×2 (11:35→20:07)
[2023-05-02] MEDS: Losartan 50 MG TAB PO SCH (19:59)
[2023-05-02] MEDS: traZODone HCl 50 MG TAB PO SCH (19:59)
[2023-05-02] MEDS: Atorvastatin Calcium 40 MG TAB PO SCH (20:00)
[2023-05-02] MEDS: Transdermal Patch Removal TOP SCH (20:11)
[2023-05-03] MEDS: Meropenem 1 GM in Sodium Chloride 0.9% 100 ML IVPB SCH ×3 (05:40→21:01)
[2023-05-03] MEDS: Lidocaine 4% Patch TD SCH (08:02)
[2023-05-03] MEDS: Escitalopram Oxalate 10 mg Tablet PO SCH (08:02)
[2023-05-03] MEDS: metFORMIN XR 500 MG ER.TAB PO SCH (08:02)
[2023-05-03] MEDS: busPIRone HCl 5 MG TAB PO SCH ×2 (08:02→20:02)
[2023-05-03] MEDS: Diphenoxylate HCl/Atropine Tablet PO SCH ×3 (08:02→20:01)
[2023-05-03] MEDS: DULoxetine 30 MG CAP PO SCH (08:02)
[2023-05-03] MEDS: Aspirin 325 mg Enteric Coated Tablet PO SCH (08:02)
[2023-05-03] MEDS: Famotidine 20 MG TAB PO SCH (08:03)
[2023-05-03] MEDS: hydrALAZINE 25 MG TAB PO SCH ×2 (08:03→20:02)
[2023-05-03] MEDS: Multivitamin W/ Minerals 1 TAB PO SCH (08:03)
[2023-05-03] MEDS: Hydrochlorothiazide 25 MG TAB PO SCH (08:03)
[2023-05-03] MEDS: Ferrous Sulfate 325 MG TAB PO SCH (08:03)
[2023-05-03] MEDS: traZODone HCl 50 MG TAB PO SCH (20:02)
[2023-05-03] MEDS: Losartan 50 MG TAB PO SCH (20:02)
[2023-05-03] MEDS: Atorvastatin Calcium 40 MG TAB PO SCH (20:02)
[2023-05-03] MEDS: Transdermal Patch Removal TOP SCH (20:03)
[2023-05-03] MEDS ORDERED: FLU VACC QS2023-24(6MOS UP)/PF 60 MCG/0.5 ML SYRINGE IM ONE (21:21)
[2023-05-04] MEDS: Meropenem 1 GM in Sodium Chloride 0.9% 100 ML IVPB SCH ×3 (03:54→20:49)
[2023-05-04] MEDS: busPIRone HCl 5 MG TAB PO SCH ×2 (07:40→20:46)
[2023-05-04] MEDS: DULoxetine 30 MG CAP PO SCH (07:40)
[2023-05-04] MEDS: Escitalopram Oxalate 10 mg Tablet PO SCH (07:41)
[2023-05-04] MEDS: Diphenoxylate HCl/Atropine Tablet PO SCH ×3 (07:48→20:44)
[2023-05-04] MEDS: Aspirin 325 mg Enteric Coated Tablet PO SCH (07:48)
[2023-05-04] MEDS: metFORMIN XR 500 MG ER.TAB PO SCH (07:48)
[2023-05-04] MEDS: Ferrous Sulfate 325 MG TAB PO SCH (07:48)
[2023-05-04] MEDS: Famotidine 20 MG TAB PO SCH (07:49)
[2023-05-04] MEDS: hydrALAZINE 25 MG TAB PO SCH ×2 (07:49→20:50)
[2023-05-04] MEDS: Multivitamin W/ Minerals 1 TAB PO SCH (07:50)
[2023-05-04] MEDS: Hydrochlorothiazide 25 MG TAB PO SCH (07:50)
[2023-05-04] MEDS: Lidocaine 4% Patch TD SCH (07:50)
[2023-05-04] MEDS: Ondansetron ODT 4 MG TAB PO PRN (14:03)
[2023-05-04] MEDS: Atorvastatin Calcium 40 MG TAB PO SCH (20:46)
[2023-05-04] MEDS: traZODone HCl 50 MG TAB PO SCH (20:48)
[2023-05-04] MEDS: Losartan 50 MG TAB PO SCH (20:51)
[2023-05-04] MEDS: HYDROcodone/Acetaminophen 7.5/325 mg Tablet PO PRN (21:02)
[2023-05-04] MEDS: Transdermal Patch Removal TOP SCH (21:07)
[2023-05-05] MEDS: Meropenem 1 GM in Sodium Chloride 0.9% 100 ML IVPB SCH ×3 (05:13→21:05)
[2023-05-05] MEDS: busPIRone HCl 5 MG TAB PO SCH ×2 (08:19→20:59)
[2023-05-05] MEDS: DULoxetine 30 MG CAP PO SCH (08:19)
[2023-05-05] MEDS: Diphenoxylate HCl/Atropine Tablet PO SCH ×3 (08:19→21:00)
[2023-05-05] MEDS: Aspirin 325 mg Enteric Coated Tablet PO SCH (08:19)
[2023-05-05] MEDS: Multivitamin W/ Minerals 1 TAB PO SCH (08:19)
[2023-05-05] MEDS: metFORMIN XR 500 MG ER.TAB PO SCH (08:19)
[2023-05-05] MEDS: Hydrochlorothiazide 25 MG TAB PO SCH (08:19)
[2023-05-05] MEDS: Escitalopram Oxalate 10 mg Tablet PO SCH (08:20)
[2023-05-05] MEDS: Lidocaine 4% Patch TD SCH (08:20)
[2023-05-05] MEDS: Famotidine 20 MG TAB PO SCH (08:20)
[2023-05-05] MEDS: hydrALAZINE 25 MG TAB PO SCH ×2 (08:20→21:01)
[2023-05-05] MEDS: Ferrous Sulfate 325 MG TAB PO SCH (08:20)
[2023-05-05] MEDS ORDERED: Aspirin 325 mg Enteric Coated Tablet PO SCH (09:00)
[2023-05-05] MEDS: Atorvastatin Calcium 40 MG TAB PO SCH (20:59)
[2023-05-05] MEDS: Losartan 50 MG TAB PO SCH (21:02)
[2023-05-05] MEDS: traZODone HCl 50 MG TAB PO SCH (21:03)
[2023-05-05] MEDS: Transdermal Patch Removal TOP SCH (21:03)
[2023-05-05] MEDS: HYDROcodone/Acetaminophen 7.5/325 mg Tablet PO PRN (21:09)
[2023-05-06] MEDS: Meropenem 1 GM in Sodium Chloride 0.9% 100 ML IVPB SCH ×3 (05:45→21:15)
[2023-05-06] MEDS: Diphenoxylate HCl/Atropine Tablet PO SCH ×3 (08:06→21:13)
[2023-05-06] MEDS: Lidocaine 4% Patch TD SCH (08:06)
[2023-05-06] MEDS: busPIRone HCl 5 MG TAB PO SCH ×2 (08:07→21:14)
[2023-05-06] MEDS: DULoxetine 30 MG CAP PO SCH (08:07)
[2023-05-06] MEDS: Ferrous Sulfate 325 MG TAB PO SCH (08:07)
[2023-05-06] MEDS: Escitalopram Oxalate 10 mg Tablet PO SCH (08:07)
[2023-05-06] MEDS: Famotidine 20 MG TAB PO SCH (08:07)
[2023-05-06] MEDS: Aspirin 81 mg Enteric Coated Tablet PO SCH (08:07)
[2023-05-06] MEDS: metFORMIN XR 500 MG ER.TAB PO SCH (08:07)
[2023-05-06] MEDS: Multivitamin W/ Minerals 1 TAB PO SCH (08:08)
[2023-05-06] MEDS: hydrALAZINE 25 MG TAB PO SCH ×2 (08:11→21:13)
[2023-05-06] MEDS: Hydrochlorothiazide 25 MG TAB PO SCH (08:12)
[2023-05-06] MEDS: Acetaminophen 325 MG TAB PO PRN (08:19)
[2023-05-06] MEDS ORDERED: Aspirin 325 mg Enteric Coated Tablet PO SCH (09:00)
[2023-05-06] MEDS: traZODone HCl 50 MG TAB PO SCH (21:14)
[2023-05-06] MEDS: Atorvastatin Calcium 40 MG TAB PO SCH (21:14)
[2023-05-06] MEDS: Transdermal Patch Removal TOP SCH (21:14)
[2023-05-06] MEDS: Losartan 50 MG TAB PO SCH (21:14)
[2023-05-06] MEDS: HYDROcodone/Acetaminophen 7.5/325 mg Tablet PO PRN (21:29)
[2023-05-07] MEDS: Meropenem 1 GM in Sodium Chloride 0.9% 100 ML IVPB SCH ×3 (05:39→21:37)
[2023-05-07] MEDS: Diphenoxylate HCl/Atropine Tablet PO SCH ×3 (08:11→21:31)
[2023-05-07] MEDS: busPIRone HCl 5 MG TAB PO SCH ×2 (08:11→21:31)
[2023-05-07] MEDS: Lidocaine 4% Patch TD SCH (08:11)
[2023-05-07] MEDS: Ferrous Sulfate 325 MG TAB PO SCH (08:12)
[2023-05-07] MEDS: Aspirin 81 mg Enteric Coated Tablet PO SCH (08:12)
[2023-05-07] MEDS: Multivitamin W/ Minerals 1 TAB PO SCH (08:12)
[2023-05-07] MEDS: Famotidine 20 MG TAB PO SCH (08:12)
[2023-05-07] MEDS: Escitalopram Oxalate 10 mg Tablet PO SCH (08:12)
[2023-05-07] MEDS: hydrALAZINE 25 MG TAB PO SCH (08:13)
[2023-05-07] MEDS: DULoxetine 30 MG CAP PO SCH (08:14)
[2023-05-07] MEDS: metFORMIN XR 500 MG ER.TAB PO SCH (08:16)
[2023-05-07] MEDS ORDERED: Hydrochlorothiazide 25 MG TAB PO SCH (09:00)
[2023-05-07] MEDS: Acetaminophen 325 MG TAB PO PRN (09:13)
[2023-05-07] MEDS: Transdermal Patch Removal TOP SCH (21:32)
[2023-05-07] MEDS: Atorvastatin Calcium 40 MG TAB PO SCH (21:32)
[2023-05-07] MEDS: traZODone HCl 50 MG TAB PO SCH (21:32)
[2023-05-07] MEDS: Ondansetron ODT 4 MG TAB PO PRN (21:35)
[2023-05-08] MEDS: Meropenem 1 GM in Sodium Chloride 0.9% 100 ML IVPB SCH ×3 (06:10→21:16)
[2023-05-08] MEDS: Escitalopram Oxalate 10 mg Tablet PO SCH (08:08)
[2023-05-08] MEDS: Multivitamin W/ Minerals 1 TAB PO SCH (08:08)
[2023-05-08] MEDS: Lidocaine 4% Patch TD SCH (08:08)
[2023-05-08] MEDS: busPIRone HCl 5 MG TAB PO SCH ×2 (08:08→21:16)
[2023-05-08] MEDS: DULoxetine 30 MG CAP PO SCH (08:08)
[2023-05-08] MEDS: Diphenoxylate HCl/Atropine Tablet PO SCH ×3 (08:08→21:16)
[2023-05-08] MEDS: Aspirin 81 mg Enteric Coated Tablet PO SCH (08:08)
[2023-05-08] MEDS: metFORMIN XR 500 MG ER.TAB PO SCH (08:09)
[2023-05-08] MEDS: Ferrous Sulfate 325 MG TAB PO SCH (08:09)
[2023-05-08] MEDS: Famotidine 20 MG TAB PO SCH (08:15)
[2023-05-08] MEDS: Atorvastatin Calcium 40 MG TAB PO SCH (21:16)
[2023-05-08] MEDS: traZODone HCl 50 MG TAB PO SCH (21:16)
[2023-05-08] MEDS: Transdermal Patch Removal TOP SCH (21:17)
[2023-05-08] MEDS: HYDROcodone/Acetaminophen 7.5/325 mg Tablet PO PRN (21:19)
[2023-05-09 05:23] LABS: #Basophils 0.1 thou/uL (0.0-0.2); #Eosinphils 0.2 thou/uL (0.0-0.7); #Monocytes 0.6 thou/uL (0.11-0.59); #Neutrophils 2.8 thou/uL (1.40-6.50); %Basophils 1.3 % (0.0-1.0); %Eosinophils 4.2 % (0.0-10.0); %Lymphocytes 20.9 % (21.0-51.0); %Neutrophils 59.7 % (42.0-75.0); Hematocrit 26.4 % (42.0-52.0); Hemoglobin 8.8 g/dL (14.0-18.0); Mean Corpuscular HGB CONC 33.2 g/dL (32.0-36.0); Mean Corpuscular Hemoglobin 28.5 pg (27.0-31.0); Mean Corpuscular Volume 85.8 fl (78.0-98.0); Mean Platelet Volume 5.9 fL (7.4-10.4); Platelet Count 207 10x3/uL (130-400); RBC Distribution Width 14.1 % (11.5-14.5); Red Blood Cell (RBC) Count 3.08 mill/uL (4.70-6.10); White Blood Cell (WBC) Count 4.6 10x3/uL (4.8-10.8)
[2023-05-09] MEDS: Meropenem 1 GM in Sodium Chloride 0.9% 100 ML IVPB SCH ×3 (05:28→21:21)
[2023-05-09 05:39] LABS: ALT (SGPT) 10 U/L (8-55); AST (SGOT) 13 U/L (5-34); Albumin 3.4 g/dL (3.4-4.8); Alkaline Phosphatase 61 U/L (40-110); Anion Gap 14 mmol/L (10-20); BUN (Urea Nitrogen) 27 mg/dL (8.4-25.7); Bilirubin, Total 0.3 mg/dL (0.2-1.2); CRP (Inflammatory) 2.54 mg/dL (= or < 0.5); Calc. Creatinine Clearance 66 mL/min (70-130); Calcium 10.1 mg/dL (7.8-10.44); Carbon Dioxide 24 mmol/L (23-31); Chloride 101 mmol/L (98-107); Estimated GFR 58; Globulin 3.8 g/dL (2.4-3.5); Glucose 113 mg/dL (80-115); Potassium 4.1 mmol/L (3.5-5.1); Protein, Total 7.2 g/dL (5.8-8.1); Sodium 135 mmol/L (136-145)
[2023-05-09] MEDS: Diphenoxylate HCl/Atropine Tablet PO SCH ×3 (08:24→21:21)
[2023-05-09] MEDS: Lidocaine 4% Patch TD SCH (08:27)
[2023-05-09] MEDS: Multivitamin W/ Minerals 1 TAB PO SCH (08:27)
[2023-05-09] MEDS: DULoxetine 30 MG CAP PO SCH (08:27)
[2023-05-09] MEDS: Aspirin 81 mg Enteric Coated Tablet PO SCH (08:27)
[2023-05-09] MEDS: metFORMIN XR 500 MG ER.TAB PO SCH (08:28)
[2023-05-09] MEDS: Famotidine 20 MG TAB PO SCH (08:28)
[2023-05-09] MEDS: Escitalopram Oxalate 10 mg Tablet PO SCH (08:28)
[2023-05-09] MEDS: Ferrous Sulfate 325 MG TAB PO SCH (08:28)
[2023-05-09] MEDS: busPIRone HCl 5 MG TAB PO SCH ×2 (08:29→21:21)
[2023-05-09] MEDS: Atorvastatin Calcium 40 MG TAB PO SCH (21:21)
[2023-05-09] MEDS: traZODone HCl 50 MG TAB PO SCH (21:21)
[2023-05-09] MEDS: Transdermal Patch Removal TOP SCH (21:22)
[2023-05-10] MEDS: Meropenem 1 GM in Sodium Chloride 0.9% 100 ML IVPB SCH ×3 (06:04→21:37)
[2023-05-10] MEDS: Diphenoxylate HCl/Atropine Tablet PO SCH ×3 (08:15→21:37)
[2023-05-10] MEDS: busPIRone HCl 5 MG TAB PO SCH ×2 (08:18→21:37)
[2023-05-10] MEDS: Multivitamin W/ Minerals 1 TAB PO SCH (08:19)
[2023-05-10] MEDS: Escitalopram Oxalate 10 mg Tablet PO SCH (08:19)
[2023-05-10] MEDS: Famotidine 20 MG TAB PO SCH (08:19)
[2023-05-10] MEDS: metFORMIN XR 500 MG ER.TAB PO SCH (08:19)
[2023-05-10] MEDS: Aspirin 81 mg Enteric Coated Tablet PO SCH (08:20)
[2023-05-10] MEDS: Ferrous Sulfate 325 MG TAB PO SCH (08:20)
[2023-05-10] MEDS: DULoxetine 30 MG CAP PO SCH (08:20)
[2023-05-10] MEDS: Lidocaine 4% Patch TD SCH (08:21)
[2023-05-10] MEDS: Atorvastatin Calcium 40 MG TAB PO SCH ×2 (21:38)
[2023-05-10] MEDS: Transdermal Patch Removal TOP SCH (21:39)
[2023-05-10] MEDS: traZODone HCl 50 MG TAB PO SCH (21:39)
[2023-05-11] MEDS: Meropenem 1 GM in Sodium Chloride 0.9% 100 ML IVPB SCH ×3 (05:39→21:37)
[2023-05-11] MEDS: Aspirin 81 mg Enteric Coated Tablet PO SCH (08:24)
[2023-05-11] MEDS: metFORMIN XR 500 MG ER.TAB PO SCH (08:24)
[2023-05-11] MEDS: DULoxetine 30 MG CAP PO SCH (08:24)
[2023-05-11] MEDS: Lidocaine 4% Patch TD SCH (08:24)
[2023-05-11] MEDS: Escitalopram Oxalate 10 mg Tablet PO SCH (08:24)
[2023-05-11] MEDS: Metoprolol Tartrate 25 MG TAB PO SCH ×2 (08:25→21:37)
[2023-05-11] MEDS: Famotidine 20 MG TAB PO SCH (08:25)
[2023-05-11] MEDS ORDERED: Iopamidol 370 76% 100 ML VIAL ONE (08:25)
[2023-05-11] MEDS: Ferrous Sulfate 325 MG TAB PO SCH (08:25)
[2023-05-11] MEDS: Multivitamin W/ Minerals 1 TAB PO SCH (08:25)
[2023-05-11] MEDS: Diphenoxylate HCl/Atropine Tablet PO SCH ×3 (08:26→21:35)
[2023-05-11] MEDS: busPIRone HCl 5 MG TAB PO SCH ×2 (08:26→21:36)
[2023-05-11] MEDS: traZODone HCl 50 MG TAB PO SCH (21:36)
[2023-05-11] MEDS: Atorvastatin Calcium 40 MG TAB PO SCH (21:36)
[2023-05-11] MEDS: Transdermal Patch Removal TOP SCH (21:38)
[2023-05-12] MEDS: Meropenem 1 GM in Sodium Chloride 0.9% 100 ML IVPB SCH ×3 (05:28→21:14)
[2023-05-12] MEDS: busPIRone HCl 5 MG TAB PO SCH ×2 (08:02→21:08)
[2023-05-12] MEDS: metFORMIN XR 500 MG ER.TAB PO SCH (08:02)
[2023-05-12] MEDS: Escitalopram Oxalate 10 mg Tablet PO SCH (08:02)
[2023-05-12] MEDS: DULoxetine 30 MG CAP PO SCH (08:02)
[2023-05-12] MEDS: Diphenoxylate HCl/Atropine Tablet PO SCH ×3 (08:04→21:07)
[2023-05-12] MEDS: Famotidine 20 MG TAB PO SCH (08:04)
[2023-05-12] MEDS: Metoprolol Tartrate 25 MG TAB PO SCH ×2 (08:04→21:08)
[2023-05-12] MEDS: Aspirin 81 mg Enteric Coated Tablet PO SCH (08:05)
[2023-05-12] MEDS: Ferrous Sulfate 325 MG TAB PO SCH (08:05)
[2023-05-12] MEDS: Lidocaine 4% Patch TD SCH (08:05)
[2023-05-12] MEDS: Multivitamin W/ Minerals 1 TAB PO SCH (08:06)
[2023-05-12] MEDS: traZODone HCl 50 MG TAB PO SCH (21:08)
[2023-05-12] MEDS: Atorvastatin Calcium 40 MG TAB PO SCH (21:08)
[2023-05-12] MEDS: Transdermal Patch Removal TOP SCH (21:16)
[2023-05-13] MEDS: Meropenem 1 GM in Sodium Chloride 0.9% 100 ML IVPB SCH ×3 (05:45→21:04)
[2023-05-13] MEDS: Famotidine 20 MG TAB PO SCH (08:16)
[2023-05-13] MEDS: Aspirin 81 mg Enteric Coated Tablet PO SCH (08:16)
[2023-05-13] MEDS: Lidocaine 4% Patch TD SCH (08:16)
[2023-05-13] MEDS: busPIRone HCl 5 MG TAB PO SCH ×2 (08:16→21:03)
[2023-05-13] MEDS: metFORMIN XR 500 MG ER.TAB PO SCH (08:17)
[2023-05-13] MEDS: Metoprolol Tartrate 25 MG TAB PO SCH ×2 (08:17→21:04)
[2023-05-13] MEDS: Ferrous Sulfate 325 MG TAB PO SCH (08:17)
[2023-05-13] MEDS: Diphenoxylate HCl/Atropine Tablet PO SCH ×3 (08:17→21:04)
[2023-05-13] MEDS: Escitalopram Oxalate 10 mg Tablet PO SCH (08:18)
[2023-05-13] MEDS: DULoxetine 30 MG CAP PO SCH (08:18)
[2023-05-13] MEDS: Multivitamin W/ Minerals 1 TAB PO SCH (08:18)
[2023-05-13] MEDS: Atorvastatin Calcium 40 MG TAB PO SCH (21:03)
[2023-05-13] MEDS: traZODone HCl 50 MG TAB PO SCH (21:04)
[2023-05-13] MEDS: Transdermal Patch Removal TOP SCH (21:05)
[2023-05-14] MEDS: Meropenem 1 GM in Sodium Chloride 0.9% 100 ML IVPB SCH ×3 (05:52→21:05)
[2023-05-14] MEDS: Lidocaine 4% Patch TD SCH (08:34)
[2023-05-14] MEDS: busPIRone HCl 5 MG TAB PO SCH ×2 (08:34→21:01)
[2023-05-14] MEDS: Ferrous Sulfate 325 MG TAB PO SCH (08:34)
[2023-05-14] MEDS: metFORMIN XR 500 MG ER.TAB PO SCH (08:34)
[2023-05-14] MEDS: Aspirin 81 mg Enteric Coated Tablet PO SCH (08:34)
[2023-05-14] MEDS: Multivitamin W/ Minerals 1 TAB PO SCH (08:35)
[2023-05-14] MEDS: Famotidine 20 MG TAB PO SCH (08:35)
[2023-05-14] MEDS: Diphenoxylate HCl/Atropine Tablet PO SCH ×3 (08:35→21:01)
[2023-05-14] MEDS: DULoxetine 30 MG CAP PO SCH (08:35)
[2023-05-14] MEDS: Escitalopram Oxalate 10 mg Tablet PO SCH (08:36)
[2023-05-14] MEDS: Metoprolol Tartrate 25 MG TAB PO SCH ×2 (08:36→21:01)
[2023-05-14] MEDS: Atorvastatin Calcium 40 MG TAB PO SCH (21:01)
[2023-05-14] MEDS: traZODone HCl 50 MG TAB PO SCH (21:01)
[2023-05-14] MEDS: Transdermal Patch Removal TOP SCH (21:06)
[2023-05-15] MEDS: Meropenem 1 GM in Sodium Chloride 0.9% 100 ML IVPB SCH ×3 (05:54→21:06)
[2023-05-15] MEDS: Multivitamin W/ Minerals 1 TAB PO SCH (09:07)
[2023-05-15] MEDS: busPIRone HCl 5 MG TAB PO SCH ×2 (09:07→21:06)
[2023-05-15] MEDS: metFORMIN XR 500 MG ER.TAB PO SCH (09:08)
[2023-05-15] MEDS: DULoxetine 30 MG CAP PO SCH (09:08)
[2023-05-15] MEDS: Aspirin 81 mg Enteric Coated Tablet PO SCH (09:09)
[2023-05-15] MEDS: Diphenoxylate HCl/Atropine Tablet PO SCH ×3 (09:10→21:05)
[2023-05-15] MEDS: Ferrous Sulfate 325 MG TAB PO SCH (09:10)
[2023-05-15] MEDS: Escitalopram Oxalate 10 mg Tablet PO SCH (09:10)
[2023-05-15] MEDS: Famotidine 20 MG TAB PO SCH (09:11)
[2023-05-15] MEDS: Metoprolol Tartrate 25 MG TAB PO SCH ×2 (09:22→21:06)
[2023-05-15] MEDS: Lidocaine 4% Patch TD SCH (10:09)
[2023-05-15] MEDS: Acetaminophen 325 MG TAB PO PRN ×2 (10:52→19:10)
[2023-05-15] MEDS: guaiFENesin ER 600 MG TAB PO SCH (21:05)
[2023-05-15] MEDS: Atorvastatin Calcium 40 MG TAB PO SCH (21:05)
[2023-05-15] MEDS: traZODone HCl 50 MG TAB PO SCH (21:06)
[2023-05-15] MEDS: Transdermal Patch Removal TOP SCH (21:07)
[2023-05-16 05:36] LABS: Band 2 % (5-11); Hematocrit 25.3 % (42.0-52.0); Hemoglobin 8.5 g/dL (14.0-18.0); Lymphocytes 18 % (21-51); MDiff Complete? YES; Mean Corpuscular HGB CONC 33.7 g/dL (32.0-36.0); Mean Corpuscular Hemoglobin 28.5 pg (27.0-31.0); Mean Corpuscular Volume 84.6 fl (78.0-98.0); Mean Platelet Volume 5.9 fL (7.4-10.4); Monocytes 2 % (0-10); Neutrophil 78 % (42-75); Platelet Count 151 10x3/uL (130-400); Red Blood Cell (RBC) Count 2.99 mill/uL (4.70-6.10); White Blood Cell (WBC) Count 5.4 10x3/uL (4.8-10.8)
[2023-05-16 05:38] LABS: ALT (SGPT) 12 U/L (8-55); AST (SGOT) 14 U/L (5-34); Albumin 3.5 g/dL (3.4-4.8); Alkaline Phosphatase 56 U/L (40-110); Anion Gap 13 mmol/L (10-20); BUN (Urea Nitrogen) 21 mg/dL (8.4-25.7); Bilirubin, Total 0.4 mg/dL (0.2-1.2); CRP (Inflammatory) 6.98 mg/dL (= or < 0.5); Calc. Creatinine Clearance 58 mL/min (70-130); Calcium 9.9 mg/dL (7.8-10.44); Carbon Dioxide 24 mmol/L (23-31); Chloride 101 mmol/L (98-107); Estimated GFR 53; Globulin 3.7 g/dL (2.4-3.5); Glucose 113 mg/dL (80-115); Potassium 4.5 mmol/L (3.5-5.1); Protein, Total 7.2 g/dL (5.8-8.1); Sodium 133 mmol/L (136-145)
[2023-05-16] MEDS: Meropenem 1 GM in Sodium Chloride 0.9% 100 ML IVPB SCH ×3 (05:50→21:03)
[2023-05-16] MEDS: Acetaminophen 325 MG TAB PO PRN ×2 (07:07→17:59)
[2023-05-16] MEDS: metFORMIN XR 500 MG ER.TAB PO SCH (08:01)
[2023-05-16] MEDS: Metoprolol Tartrate 25 MG TAB PO SCH ×2 (08:01→21:01)
[2023-05-16] MEDS: guaiFENesin ER 600 MG TAB PO SCH ×2 (08:01→21:02)
[2023-05-16] MEDS: busPIRone HCl 5 MG TAB PO SCH ×2 (08:01→21:01)
[2023-05-16] MEDS: Famotidine 20 MG TAB PO SCH (08:02)
[2023-05-16] MEDS: Escitalopram Oxalate 10 mg Tablet PO SCH (08:02)
[2023-05-16] MEDS: Aspirin 81 mg Enteric Coated Tablet PO SCH (08:02)
[2023-05-16] MEDS: Diphenoxylate HCl/Atropine Tablet PO SCH ×3 (08:02→21:01)
[2023-05-16] MEDS: DULoxetine 30 MG CAP PO SCH (08:02)
[2023-05-16] MEDS: Ferrous Sulfate 325 MG TAB PO SCH (08:02)
[2023-05-16] MEDS: Multivitamin W/ Minerals 1 TAB PO SCH (08:02)
[2023-05-16] MEDS: Lidocaine 4% Patch TD SCH ×2 (08:03→08:08)
[2023-05-16 11:28] LABS: SARS-CoV-2 NAA Rapid Test DETECTED (NotDetected)
[2023-05-16] MEDS: traZODone HCl 50 MG TAB PO SCH (21:02)
[2023-05-16] MEDS: Atorvastatin Calcium 40 MG TAB PO SCH (21:02)
[2023-05-16] MEDS: Ascorbic Acid 500 mg Chewable Tablet PO SCH (21:02)
[2023-05-16] MEDS: Transdermal Patch Removal TOP SCH (21:03)
[2023-05-17] MEDS: Meropenem 1 GM in Sodium Chloride 0.9% 100 ML IVPB SCH ×3 (05:10→21:04)
[2023-05-17] MEDS: busPIRone HCl 5 MG TAB PO SCH ×2 (08:05→21:03)
[2023-05-17] MEDS: Diphenoxylate HCl/Atropine Tablet PO SCH ×3 (08:06→21:02)
[2023-05-17] MEDS: Zinc Sulfate 220 MG CAP PO SCH (08:06)
[2023-05-17] MEDS: Acetaminophen 325 MG TAB PO PRN ×2 (08:06→21:03)
[2023-05-17] MEDS: metFORMIN XR 500 MG ER.TAB PO SCH (08:06)
[2023-05-17] MEDS: Ferrous Sulfate 325 MG TAB PO SCH (08:07)
[2023-05-17] MEDS: Famotidine 20 MG TAB PO SCH (08:07)
[2023-05-17] MEDS: Metoprolol Tartrate 25 MG TAB PO SCH ×2 (08:07→21:03)
[2023-05-17] MEDS: Cholecalciferol 1,000 UNITS (25 MCG) TAB PO SCH (08:07)
[2023-05-17] MEDS: DULoxetine 30 MG CAP PO SCH (08:07)
[2023-05-17] MEDS: Escitalopram Oxalate 10 mg Tablet PO SCH (08:07)
[2023-05-17] MEDS: Multivitamin W/ Minerals 1 TAB PO SCH (08:08)
[2023-05-17] MEDS: Lidocaine 4% Patch TD SCH (08:08)
[2023-05-17] MEDS: Ascorbic Acid 500 mg Chewable Tablet PO SCH ×2 (08:08→21:04)
[2023-05-17] MEDS: guaiFENesin ER 600 MG TAB PO SCH ×2 (08:08→21:03)
[2023-05-17] MEDS: Aspirin 81 mg Enteric Coated Tablet PO SCH (08:08)
[2023-05-17] MEDS: HYDROcodone/Acetaminophen 7.5/325 mg Tablet PO PRN (14:50)
[2023-05-17] MEDS: Atorvastatin Calcium 40 MG TAB PO SCH (21:03)
[2023-05-17] MEDS: traZODone HCl 50 MG TAB PO SCH (21:03)
[2023-05-17] MEDS: Transdermal Patch Removal TOP SCH (21:04)
[2023-05-18] MEDS: Meropenem 1 GM in Sodium Chloride 0.9% 100 ML IVPB SCH ×3 (05:21→21:09)
[2023-05-18] MEDS: busPIRone HCl 5 MG TAB PO SCH ×2 (08:08→20:18)
[2023-05-18] MEDS: Diphenoxylate HCl/Atropine Tablet PO SCH ×3 (08:08→20:18)
[2023-05-18] MEDS: Metoprolol Tartrate 25 MG TAB PO SCH ×2 (08:09→20:24)
[2023-05-18] MEDS: Escitalopram Oxalate 10 mg Tablet PO SCH (08:09)
[2023-05-18] MEDS: metFORMIN XR 500 MG ER.TAB PO SCH (08:09)
[2023-05-18] MEDS: Multivitamin W/ Minerals 1 TAB PO SCH (08:09)
[2023-05-18] MEDS: guaiFENesin ER 600 MG TAB PO SCH ×2 (08:09→20:17)
[2023-05-18] MEDS: Acetaminophen 325 MG TAB PO PRN (08:09)
[2023-05-18] MEDS: Cholecalciferol 1,000 UNITS (25 MCG) TAB PO SCH (08:09)
[2023-05-18] MEDS: DULoxetine 30 MG CAP PO SCH (08:09)
[2023-05-18] MEDS: Ascorbic Acid 500 mg Chewable Tablet PO SCH ×2 (08:10→20:18)
[2023-05-18] MEDS: Famotidine 20 MG TAB PO SCH (08:10)
[2023-05-18] MEDS: Aspirin 81 mg Enteric Coated Tablet PO SCH (08:10)
[2023-05-18] MEDS: Lidocaine 4% Patch TD SCH (08:11)
[2023-05-18] MEDS: Ferrous Sulfate 325 MG TAB PO SCH (08:12)
[2023-05-18] MEDS: Ondansetron ODT 4 MG TAB PO PRN (10:34)
[2023-05-18 12:14] VITALS: BMI 23.8
[2023-05-18] MEDS: Atorvastatin Calcium 40 MG TAB PO SCH (20:18)
[2023-05-18] MEDS: traZODone HCl 50 MG TAB PO SCH (20:18)
[2023-05-18] MEDS: Transdermal Patch Removal TOP SCH (20:24)
[2023-05-19] MEDS: Meropenem 1 GM in Sodium Chloride 0.9% 100 ML IVPB SCH ×3 (05:53→21:01)
[2023-05-19] MEDS: Lidocaine 4% Patch TD SCH (08:35)
[2023-05-19] MEDS: Ferrous Sulfate 325 MG TAB PO SCH (08:36)
[2023-05-19] MEDS: Zinc Sulfate 220 MG CAP PO SCH (08:37)
[2023-05-19] MEDS: guaiFENesin ER 600 MG TAB PO SCH ×2 (08:37→20:13)
[2023-05-19] MEDS: Diphenoxylate HCl/Atropine Tablet PO SCH ×3 (08:37→20:07)
[2023-05-19] MEDS: Cholecalciferol 1,000 UNITS (25 MCG) TAB PO SCH (08:37)
[2023-05-19] MEDS: metFORMIN XR 500 MG ER.TAB PO SCH (08:37)
[2023-05-19] MEDS: Aspirin 81 mg Enteric Coated Tablet PO SCH (08:37)
[2023-05-19] MEDS: Multivitamin W/ Minerals 1 TAB PO SCH (08:38)
[2023-05-19] MEDS: Ascorbic Acid 500 mg Chewable Tablet PO SCH ×2 (08:38→20:13)
[2023-05-19] MEDS: Escitalopram Oxalate 10 mg Tablet PO SCH (08:38)
[2023-05-19] MEDS: Metoprolol Tartrate 25 MG TAB PO SCH ×2 (08:38→20:14)
[2023-05-19] MEDS: DULoxetine 30 MG CAP PO SCH (08:38)
[2023-05-19] MEDS: busPIRone HCl 5 MG TAB PO SCH ×2 (08:38→20:12)
[2023-05-19] MEDS: Famotidine 20 MG TAB PO SCH (08:39)
[2023-05-19] MEDS: traZODone HCl 50 MG TAB PO SCH (20:13)
[2023-05-19] MEDS: Transdermal Patch Removal TOP SCH (20:14)
[2023-05-19] MEDS: Atorvastatin Calcium 40 MG TAB PO SCH (20:14)
[2023-05-19] MEDS ORDERED: Activase 2 MG VIAL CATH SCH ×2 (21:30→21:45)
[2023-05-19] MEDS ORDERED: Sterile Water 10 ML VIAL FS SCH ×2 (21:30→22:00)
[2023-05-19] MEDS: Acetaminophen 325 MG TAB PO PRN (22:39)
[2023-05-20] MEDS: Ondansetron ODT 4 MG TAB PO PRN ×2 (00:39→08:03)
[2023-05-20] MEDS: Meropenem 1 GM in Sodium Chloride 0.9% 100 ML IVPB SCH ×3 (04:59→21:28)
[2023-05-20] MEDS: Diphenoxylate HCl/Atropine Tablet PO SCH ×3 (08:04→21:24)
[2023-05-20] MEDS: metFORMIN XR 500 MG ER.TAB PO SCH (08:04)
[2023-05-20] MEDS: Zinc Sulfate 220 MG CAP PO SCH (08:04)
[2023-05-20] MEDS: guaiFENesin ER 600 MG TAB PO SCH ×2 (08:04→21:27)
[2023-05-20] MEDS: Escitalopram Oxalate 10 mg Tablet PO SCH (08:05)
[2023-05-20] MEDS: Ascorbic Acid 500 mg Chewable Tablet PO SCH ×2 (08:05→21:26)
[2023-05-20] MEDS: Famotidine 20 MG TAB PO SCH (08:05)
[2023-05-20] MEDS: busPIRone HCl 5 MG TAB PO SCH ×2 (08:06→21:25)
[2023-05-20] MEDS: DULoxetine 30 MG CAP PO SCH (08:06)
[2023-05-20] MEDS: Metoprolol Tartrate 25 MG TAB PO SCH ×2 (08:06→21:26)
[2023-05-20] MEDS: Cholecalciferol 1,000 UNITS (25 MCG) TAB PO SCH (08:06)
[2023-05-20] MEDS: Aspirin 81 mg Enteric Coated Tablet PO SCH (08:06)
[2023-05-20] MEDS: Ferrous Sulfate 325 MG TAB PO SCH (08:06)
[2023-05-20] MEDS: Multivitamin W/ Minerals 1 TAB PO SCH (08:08)
[2023-05-20] MEDS: Lidocaine 4% Patch TD SCH (08:08)
[2023-05-20] MEDS: traZODone HCl 50 MG TAB PO SCH (21:24)
[2023-05-20] MEDS: HYDROcodone/Acetaminophen 7.5/325 mg Tablet PO PRN (21:25)
[2023-05-20] MEDS: Atorvastatin Calcium 40 MG TAB PO SCH (21:25)
[2023-05-20] MEDS: Transdermal Patch Removal TOP SCH (21:28)
[2023-05-21] MEDS: Meropenem 1 GM in Sodium Chloride 0.9% 100 ML IVPB SCH (05:20)
[2023-05-21] MEDS: Diphenoxylate HCl/Atropine Tablet PO SCH (10:06)
[2023-05-21] MEDS: Famotidine 20 MG TAB PO SCH (10:07)
[2023-05-21] MEDS: metFORMIN XR 500 MG ER.TAB PO SCH (10:08)
[2023-05-21] MEDS: Zinc Sulfate 220 MG CAP PO SCH (10:08)
[2023-05-21] MEDS: busPIRone HCl 5 MG TAB PO SCH (10:08)
[2023-05-21] MEDS: DULoxetine 30 MG CAP PO SCH (10:08)
[2023-05-21] MEDS: Ferrous Sulfate 325 MG TAB PO SCH (10:08)
[2023-05-21] MEDS: Escitalopram Oxalate 10 mg Tablet PO SCH (10:08)
[2023-05-21] MEDS: Metoprolol Tartrate 25 MG TAB PO SCH (10:09)
[2023-05-21] MEDS: Cholecalciferol 1,000 UNITS (25 MCG) TAB PO SCH (10:09)
[2023-05-21] MEDS: Aspirin 81 mg Enteric Coated Tablet PO SCH (10:09)
[2023-05-21] MEDS: Multivitamin W/ Minerals 1 TAB PO SCH (10:09)
[2023-05-21] MEDS: Ascorbic Acid 500 mg Chewable Tablet PO SCH (10:09)
[2023-05-21] MEDS: guaiFENesin ER 600 MG TAB PO SCH (10:09)
[2023-05-21] MEDS: Lidocaine 4% Patch TD SCH (10:10)
[2023-05-21 12:54] VITALS: BP 113/65; TEMP 98.4
== END 2023-05-21 12:53 | disposition home or self-care (01) | DRG 371 ==
LOC: MADMS 19:31
PROVIDERS: ADMIT Family Medicine; ATTEND Family Medicine
DX: K65.1 Peritoneal abscess (principal); U07.1 COVID-19; K57.92 Diverticulitis of intestine, part unspecified, without perforation or abscess without bleeding; R78.81 Bacteremia; K63.2 Fistula of intestine; K62.5 Hemorrhage of anus and rectum; T81.31XD Disruption of external operation (surgical) wound, not elsewhere classified, subsequent encounter; Z46.89 Encounter for fitting and adjustment of other specified devices; E78.5 Hyperlipidemia, unspecified; E11.22 Type 2 diabetes mellitus with diabetic chronic kidney disease; I12.9 Hypertensive chronic kidney disease with stage 1 through stage 4 chronic kidney disease, or unspecified chronic kidney disease; N18.30 Chronic kidney disease, stage 3 unspecified; D63.1 Anemia in chronic kidney disease; F41.9 Anxiety disorder, unspecified; F32.A Depression, unspecified; B96.5 Pseudomonas (aeruginosa) (mallei) (pseudomallei) as the cause of diseases classified elsewhere; Z98.890 Other specified postprocedural states; Z93.3 Colostomy status; Z90.49 Acquired absence of other specified parts of digestive tract; Z87.891 Personal history of nicotine dependence
CPT/HCPCS: 36415; 71046; 74177; 80053; 82274; 85025; 86140; 97602; J2185; J2997; J3490; Q0162; Q9967